=== PATIENT | male | born 1990 | race Two or more races ===

== ENCOUNTER 2025-06-10 06:41 | Outpatient (CLI) | payer MEDICAID ==
[2025-06-10 08:09] LABS: Hematocrit 47.1 % (41.0-53.0); Hemoglobin 16.5 g/dL (13.5-17.5); Mean Corpuscular Hemoglobin 30.7 pg (28.0-32.0); Mean Corpuscular Volume 87.6 fL (80.0-100.0); Nucleated Red Blood Cells % 0.3 %
[2025-06-10 08:19] LABS: Alanine Aminotransferase 46 U/L (7-40); Albumin 5.2 g/dL (3.2-4.8); Alkaline Phosphatase 72 U/L (46-116); Anion Gap 10 (5-15); BUN/Creatinine Ratio 11.6 (10.0-20.0); Blood Urea Nitrogen 14 mg/dL (9-23); Calcium 10.6 mg/dL (8.7-10.4); Carbon Dioxide 28 mmol/L (20-31); Chloride 103 mmol/L (98-107); Cholesterol 235 mg/dL (< 200); Glucose 105 mg/dL (74-106); HDL Cholesterol 50 mg/dL (40-59); Potassium 4.0 mmol/L (3.5-5.1); Sodium 141 mmol/L (136-145); Total Protein 7.6 g/dL (5.7-8.2); Triglycerides 183 mg/dL (< 150)
[2025-06-10 08:20] LABS: Bilirubin, Total 0.7 mg/dL (0.2-1.0)
== END 2025-06-10 17:00 | disposition home or self-care (01) ==
LOC: LAB 06:41
PROVIDERS: ATTEND Nurse Practitioner Family
DX: I10 Essential (primary) hypertension (principal); Z00.01 Encounter for general adult medical examination with abnormal findings
CPT/HCPCS: 36415; 80053; 80061; 84443; 85025